=== PATIENT | female | born 1990 | race Caucasian/White ===

== ENCOUNTER 2019-09-09 06:35 | Day surgery (SDC) | payer OTHER ==
[2019-09-05 11:54] LABS: UDS - AMPHET POSITIVE QUAL (NEGATIVE); UDS - BARB NEGATIVE QUAL (NEGATIVE); UDS - BENZO NEGATIVE QUAL (NEGATIVE); UDS - COCAINE NEGATIVE QUAL (NEGATIVE); UDS - OPIATE NEGATIVE QUAL (NEGATIVE); UDS - PCP NEGATIVE QUAL (NEGATIVE); UDS - THC NEGATIVE QUAL (NEGATIVE)
[2019-09-05 11:55] LABS: BASOPHILS 0.2 % (0-2); EOSINOPHILS 1.7 % (0-7); HEMATOCRIT 46.2 % (36.0-48.0); HEMOGLOBIN 14.9 g/dL (12-16); IMMATURE GRANULOCYTES 0.2 % (0-5); LYMPHOCYTES 30.2 % (15-50); MCH 29.7 pg (26.0-34.0); MCHC 32.3 g/dL (31.0-37.0); MCV 92.2 fL (80.0-100.0); MEAN PLATELET VOLUME 9.2 fL (7.4-10.4); MONOCYTES 8.2 % (2-11); NEUTROPHILS 59.5 % (40-80); RBC 5.01 10x6/uL (4.00-5.40); WBC 12.7 10x3/uL (4.8-10.8)
[2019-09-05 12:39] LABS: PLATELET COUNT 333 10x3/uL (130-400)
[~2019-09-09] VITALS: Ht 175.3 cm; Wt 135.5 kg
--- NOTE | ~2019-09-09 | OP ---
PATIENT NAME: JOHNNIE MARR MEDICAL RECORD: [id number] :90 LOCATION:D.OPS ADMISSION DATE: SURGEON: BLU MARTINES MD DATE OF OPERATION: 09/09/2019 PREOPERATIVE DIAGNOSES: 1. Anxiety. 2. Abnormal Pap smear. POSTOPERATIVE DIAGNOSES: 1. Anxiety. 2. Abnormal Pap smear. PROCEDURE PERFORMED: Colposcopy with a cervical biopsy and endocervical curettage. SURGEON: Blu Martines MD AIRFIELD DEFENCE GUARD: Fidencio Marinelli. ANESTHESIOLOGIST: Dr. Cook. ANESTHESIA: TIVA. FINDINGS: Acetowhite epithelium at the 2 o'clock position. The IUD strings were noted to be at the os. SPECIMENS REMOVED: 1. Ectocervix. 2. Endocervical curettage. SPECIMEN DISPOSITION: All specimens to pathology. ESTIMATED BLOOD LOSS: Minimal. FLUIDS: 200 cc. URINE OUTPUT: Quantity sufficient void prior to this procedure. COMPLICATIONS: None. INDICATIONS: The patient is a 29-year-old female with a history of ASCUS with HPV positive Pap smear. The patient is unable to tolerate colposcopy in clinic due to anxiety. The patient is consented for a colposcopy with possible colposcopy directed biopsy and any indicated procedure under sedation. DESCRIPTION OF THE PROCEDURE: After informed consent, the patient was taken to the operating room where TIVA was obtained. The patient was placed in Yellofin stirrups and positioned. Speculum was introduced and the cervix was visualized and soaked in 5% acetic acid solution. After a few moments, the acetic acid soaked PRODUCTION ASSEMBLER swabs were removed from the vaginal vault and the colposcope was brought into focus. Acetowhite epithelium without atypical vessels or mosaicism was visualized at the 2 o'clock position. The transformation zone was seen in its entirety. The Luly strings are noted at the external os. Using Tischlers, a colposcopy directed biopsy was obtained of the 2 o'clock lesion. Endocervical OPERATIVE REPORT [id number] JOHNNIE MARR curettage was now performed. Once this has occurred, Monsel's solution was applied to the biopsy site with good effect. The speculum was now removed from the vagina and the patient was awakened and went to the recovery area in stable condition. TRANSINT:[id number] Voice Confirmation ID: [id number] DOCUMENT ID: [id number] BLU MARTINES MD CC: [id number] DICTATION DATE: 09/11/19 0633 HEAD OPERATOR SULFIDE: 09/11/19 0715 [facility] [place] 09/09/19 [place] [id number] [place] [id number]
[~2019-09-09 06:35] MED LIST: BUSPAR5 MG PO; IBUPROFEN600 MG PO; LEXAPRO20 MG PO; PERCOCET 5-3251 TAB PO; PRENATAL COMPLE1 TAB PO
[2019-09-09] MEDS ORDERED: CETIRIZINE HCL5 M1 PO (06:57)
[2019-09-09] MEDS ORDERED: FLUTICASONE PRO16 GM NASAL (06:57)
[2019-09-09 07:04] VITALS: BP 135/81; Ht 175.3 cm; Wt 135.5 kg
[2019-09-09 07:35] LABS: HCG URINE NEGATIVE (NEGATIVE)
--- NOTE | 2019-09-09 11:25 | NUR ---
DC INSTRUCTIONS GIVEN TO PT. STATES UNDERSTANDING. PT HAS NOT VOIDED YET. WILL CONTINUE TO MONITOR.
--- NOTE | 2019-09-09 11:41 | NUR ---
PT VOIDED. DC'D IV CATH FULLY INTACT. PT IS GETTING DRESSED AND WILL NOTIFY ME WHEN HER RIDE IS HERE.
--- NOTE | 2019-09-09 12:08 | NUR ---
PT LEFT UNIT VIA WC AT 1203
== END 2019-09-09 12:03 | disposition home or self-care (01) ==
LOC: D.OPS 06:35 → D.PAN 07:30 → D.OPS 08:30 → D.PAN 09:20 → D.OPS 09:20 → D.PAN 11:55 → D.OPS 12:03 → D.PAN 14:00
PROVIDERS: ATTEND Obstetrics & Gynecology
DX: R87.610 Atypical squamous cells of undetermined significance on cytologic smear of cervix (ASC-US) (principal); R87.619 Unspecified abnormal cytological findings in specimens from cervix uteri; F41.1 Generalized anxiety disorder

== ENCOUNTER 2020-07-23 09:15 | Day surgery (SDC) | payer OTHER ==
[2020-07-20 11:32] LABS: BASOPHILS 0.2 % (0-2); EOSINOPHILS 1.5 % (0-7); HEMOGLOBIN 12.9 g/dL (12-16); IMMATURE GRANULOCYTES 0.2 % (0-5); LYMPHOCYTE ABS# 3.28 10x3/uL (1.18-3.74); LYMPHOCYTES 28.8 % (15-50); MCH 29.5 pg (26.0-34.0); MCHC 32.3 g/dL (31.0-37.0); MCV 91.3 fL (80.0-100.0); MEAN PLATELET VOLUME 9.1 fL (7.4-10.4); NEUTROPHIL ABS# 7.21 10x3/uL (1.56-6.13); NEUTROPHILS 63.3 % (40-80); PLATELET COUNT 318 10x3/uL (130-400); RBC 4.38 10x6/uL (4.00-5.40); RDW 13.8 % (11.5-14.5); WBC 11.4 10x3/uL (4.8-10.8)
[~2020-07-23] VITALS: Ht 175.3 cm; Wt 132.4 kg
[~2020-07-23 09:15] MED LIST changes: +CETIRIZINE HCL5 M1 PO; +FLUTICASONE PRO16 GM NASAL
[2020-07-23 10:14] LABS: HCG URINE NEGATIVE (NEGATIVE)
[2020-07-23 10:16] VITALS: BP 114/72; Ht 175.3 cm; Wt 132.4 kg
--- NOTE | 2020-07-23 15:21 | NUR ---
SC CRYING AND STATES SHE IS ANXIOUS AND WANTS TO GO HOME, TIRED OF WAITING FOR SURGERY. IV D/C'D, DR. MARTINES AND MAMTA MANZANARES AWARE. PT ACCOMPANIED DOWNSTAIRS TO POV WITH MOTHER
== END 2020-07-23 15:00 | disposition home or self-care (01) ==
LOC: D.OPS 09:15
PROVIDERS: ATTEND Obstetrics & Gynecology
DX: R10.2 Pelvic and perineal pain (principal); Z53.20 Procedure and treatment not carried out because of patient's decision for unspecified reasons